=== PATIENT | female | born 1990 | race Caucasian/White ===

== ENCOUNTER 2017-11-10 23:49 | Emergency (ER) | payer SELFPAY ==
[2017-11-10 23:49] VITALS: BP 138/108; PULSE 125; RESP 18; TEMP 36.9; O2SAT 99; BMI 24.2
--- NOTE | 2017-11-11 00:17 | RAD_ITS ---
STUDY: X-RAY - RIGHT FOOT CLINICAL: Female, 27 years old. Rolled right ankle complaining of pain anterior and lateral aspect of right ankle. No pain in foot. TECHNIQUE: 3 view(s) of the foot. COMPARISON: None. FINDINGS: Normal talus, calcaneus, and tarsal bones. There is an oblique deformity of the distal fibula likely a nondisplaced fracture. There is anterior ankle soft tissue swelling. Normal visualized subtalar, talonavicular, calcaneocuboid, tarsal and tarsometatarsal articulations. Normal metatarsi. Normal metatarsophalangeal joint of the great toe. Normal tibial and fibular sesamoid bones. Normal interphalangeal joint of the great toe. Normal phalanges of the great toe. Normal second through fifth metatarsophalangeal joints. Normal interphalangeal joints and phalanges of the lesser toes. RAD/Foot min 3 Views IMPRESSION: Acute fracture of the distal fibula with anterior ankle soft tissue swelling. Targeted ankle views recommended. Electronically Signed: Madeleine Chávez MD at 1:09 EDT , Service support ,
--- NOTE | 2017-11-11 00:17 | RAD_ITS ---
STUDY: X-RAY - RIGHT ANKLE REASON FOR EXAM: Female, 27 years old. Trauma. Patient rolled the right ankle. Pain. TECHNIQUE: 3 view(s) of the ankle. COMPARISON: None. FINDINGS: There is an acute traumatic Ramirez type B fracture of the distal fibula. There is approximately 3 mm posterior displacement and 1.5 mm lateral displacement, but no significant angulation. Normal visualized distal tibia.. Normal medial and lateral malleoli. There is minimal widening of the distal tibial-fibular interspace, suggesting sprain of the distal interosseous ligament. There is minimal widening of the ankle mortise, due to the fracture and sprain, but without demonstrated subluxation of the tibiotalar articulation. Normal visualized talus and calcaneus. The visualized subtalar, talonavicular, calcaneocuboid and tarsal articulations are normal. There is soft tissue swelling. RAD/Ankle min 3 Views IMPRESSION: Minimally displaced Ramirez type B fracture of the distal fibula. Also suspect a sprain of the interosseous ligament.. Electronically Signed: Simone Quinones MD at 1:39 EDT , Service support ,
--- NOTE | 2017-11-11 00:20 | ED.DCSUM_ITS ---
- ER Visit Summary Date of Service: 11/11/17 Chief Complaint: Right ankle injury History of Present Illness: The patient is a 27 F who presents for right ankle injury 1 hour prior to presentation. Patient states she was getting out of a car and a friend was horsing around with her, picked her up, and then they fell , with the friend landing on her ankle. She denies any other trauma. She has pain and swelling of the ankle now and has been unable to bear weight. She denies any other complaints. Denies medical history. Denies . Physical Examination: Well-developed sitting in bed in no distress. Ice pack on the right ankle. 2+ DP pulses and symmetric. Strength and sensation are intact all dermatomes in the bilateral feet. Right ankle shows swelling and tenderness to the distal fibula. No tenderness to the medial malleolus, navicular head. Tenderness to palp of base of 5th metatarsal. Test Results: Clinical Impression(s) from Imaging Studies Ankle X-Ray 11/11/17 00:17 IMPRESSION: Minimally displaced Ramirez type B fracture of the distal fibula. Also suspect a sprain of the interosseous ligament.. Foot X-Ray 11/11/17 00:17 IMPRESSION: Acute fracture of the distal fibula with anterior ankle soft tissue swelling. Targeted ankle views recommended. Emergency Department Course and Treatment: Ice Pack and Tylenol given for pain. X-ray of the right ankle and foot performed. There were no findings concerning for foot fracture, but patient did have a distal fibular Ramirez B fracture with concerning for sprain of the interosseous ligament. Patient was offered pain medication prior to splinting and declined. A stirrup splint and posterior splint were applied using plaster to the right lower extremity. Prior to splinting, patient had good cap refill, 2+ DP pulse, and sensation and motor function intact. After splinting, patient had brisk cap refill in the toes, sensation present in all toes, and patient able to wiggle all toes. She was made nonweightbearing and placed on crutches. She is to follow-up within 1 week with orthopedics. Patient was given care instructions and a prescription for Mcdonald for severe pain. Patient was discharged home. 06:40 - Spoke with Dr. John re: referral of patient to her for follow up of her fracture. Treatment Plan: [] Disposition: [] Impression: Right Ramirez B distal fibula fracture with sprain of interosseous ligament This note was generated with [employer] dictation software. It may contain incorrect words, spelling, and punctuation that were not noted in review of the chart prior to signing ED Disposition - Plan for ED Patient: Disposition: Home or Assisted Living Chief Complaint: Lower Extremity Injury Instructions: ED Fx Ankle Lateral Malleolus Prescriptions: Hydrocodone/Acetaminophen [Mcdonald 5-325 Tablet] 1 ea PO 4X/DAY PRN PRN 3 Days # 12 tab PRN Reason: Pain Referrals: Chrissy John DO [STAFF PHYSICIAN] - 5-7 Days Care Physician,No Primary [Primary Care Provider] - Additional Instructions: DO NOT PUT ANY WEIGHT ON YOUR RIGHT FOOT/LEG. Leave the splint in place until you follow-up with orthopedics. Call as soon as possible to make an appointment for within 1 week with the orthopedic doctor on this paperwork or with the orthopedic doctor of your choice. You may use [id number] pain medication as needed for pain and Mcdonald for severe pain. Keep the leg elevated much as possible and apply ice several times a day the ankle. If you have any concerns, please return to the emergency department immediately for another evaluation.
[2017-11-11] MEDS: Acetaminophen 500 MG Tablet 1000 MG PO (00:24)
[2017-11-11 00:53] LABS: Internal QC Validated? YES +Cl - CLEAR BKGD; Pregnancy, Urine Negative Negative
--- NOTE | 2017-11-11 02:25 | ED.DEP ---
ED Disposition - Plan for ED Patient: Disposition: Home or Assisted Living Chief Complaint: Lower Extremity Injury Instructions: ED Fx Ankle Lateral Malleolus Prescriptions: Hydrocodone/Acetaminophen [[place] 5-325 Tablet] 1 ea PO 4X/DAY PRN PRN 3 Days #12 tab PRN Reason: Pain Referrals: Care Physician,No Primary [Primary Care Provider] - Chrissy John DO [STAFF PHYSICIAN] - 5-7 Days Additional Instructions: DO NOT PUT ANY WEIGHT ON YOUR RIGHT FOOT/LEG. Leave the splint in place until you follow-up with orthopedics. Call as soon as possible to make an appointment for within 1 week with the orthopedic doctor on this paperwork or with the orthopedic doctor of your choice. You may use [id number] pain medication as needed for pain and [place] for severe pain. Keep the leg elevated much as possible and apply ice several times a day the ankle. If you have any concerns, please return to the emergency department immediately for another evaluation.
--- NOTE | 2017-11-11 02:30 | DCINST.ED_ITS ---
ED Disposition - Plan for ED Patient: Disposition: Home or Assisted Living Chief Complaint: Lower Extremity Injury Instructions: ED Fx Ankle Lateral Malleolus Prescriptions: Hydrocodone/Acetaminophen [[place] 5-325 Tablet] 1 ea PO 4X/DAY PRN PRN 3 Days # 12 tab PRN Reason: Pain Referrals: Care Physician,No Primary [Primary Care Provider] - Chrissy John DO [STAFF PHYSICIAN] - 5-7 Days Additional Instructions: DO NOT PUT ANY WEIGHT ON YOUR RIGHT FOOT/LEG. Leave the splint in place until you follow-up with orthopedics. Call as soon as possible to make an appointment for within 1 week with the orthopedic doctor on this paperwork or with the orthopedic doctor of your choice. You may use [id number] pain medication as needed for pain and [place] for severe pain. Keep the leg elevated much as possible and apply ice several times a day the ankle. If you have any concerns, please return to the emergency department immediately for another evaluation.
[2017-11-11] MEDS: HYDROcodone Bitartrate/Apap 5/325 Tablet PO ×2 (02:45→02:46)
[2017-11-11 02:54] VITALS: BP 142/107; PULSE 104; RESP 18; O2SAT 100
== END 2017-11-11 02:56 | disposition home or self-care (01) ==
PROVIDERS: Emergency Provider Emergency Medicine
DX: S82.831A Other fracture of upper and lower end of right fibula, initial encounter for closed fracture (principal); S93.491A Sprain of other ligament of right ankle, initial encounter; W03.XXXA Other fall on same level due to collision with another person, initial encounter; Y93.9 Activity, unspecified; Y92.89 Other specified places as the place of occurrence of the external cause; Y99.9 Unspecified external cause status; Z72.0 Tobacco use
CPT/HCPCS: 29515; 73610; 73630; 81025; 99284

== ENCOUNTER 2017-11-25 08:28 | Day surgery (SDC) | payer MEDICAID, SELFPAY ==
[2017-11-25 08:45] VITALS: BP 140/93; PULSE 82; RESP 18; TEMP 36.9; O2SAT 99; BMI 26.1
[2017-11-25 08:51] LABS: Internal QC Validated? YES +Cl - CLEAR BKGD; Pregnancy, Urine Negative Negative
--- NOTE | 2017-11-25 10:00 | RAD_ITS ---
STUDY: X-RAY - RIGHT ANKLE REASON FOR EXAM: ORIF right ankle. TECHNIQUE: 2 fluoroscopic view(s) of the ankle. COMPARISON: Radiographs 11/11/2017. FINDINGS: There is an orthopedic plate and screws transfixing a distal fibular fracture in anatomical alignment and position. Electronically Signed: Damon Nunn MD at 11:58 EDT Tel , Service support , RAD/Ankle min 3 Views
[2017-11-25] MEDS: Cefazolin 2 GM in 0.9% Normal Saline 100 ML IV (10:05)
[2017-11-25] MEDS: Mupirocin Ointment 22gm Tube 1 APPLIC (11:00)
--- NOTE | 2017-11-25 11:06 | PCM.OPRPT ---
Report of Operation Date of Procedure: 11/25/17 Pre-Operative Diagnosis: right distal lateral malleolus fracture Post-Operative Diagnosis: same Surgery/Procedure Performed:: orif right distal lateral malleolus Type of Anesthesia:: Spinal Anesthesiologist: Santos Cedeño Estimated Blood Loss (mL): minimal Fluids Replaced: 1000ml lr Description of Procedure: Of note Patient is a 27-year-old female who was roughhousing and broke her right ankle. Was seen in the emergency room x-rayed show distal lateral malleolus fracture and increased medial joint space widening. Patient was given options of casting versus ORIF patient elected proceed with casting and she does not want to have a cast on and not be nonweightbearing for at least 6 weeks. Risks benefits and alternatives surgery discussed with patient. Risks including but not limited to blood loss,, blood clot, infection infection, neurovascular injury, failure procedure, loss of life and loss of limb. Patient is aware would like proceed with ORIF right lateral malleolus. Operative note Patient seen and examined preoperative holding area. Right leg was marked. Patient brought to the operating room placed supine on the operating table. Signing, anesthesia, antibiotics were administered. Right leg was prepped and draped prepped and draped in usual sterile fashion with tourniquet around her upper thigh. All bony prominences well-padded SCDs placed on her contralateral limb. We then marked out our incision for our distal lateral malleolus. We used fluoroscopy. Timeout was performed. Then elevated extremity the leg and tourniquet was raised her pressure to 50 torr. We then used a 15 blade to cut the skin dissected down times the level of the fracture site then used a baby Conroy to irrigate the periosteum around the fracture site we then debrided the fracture site with a bone pick. We then were able to reduce the fracture site with lobster claw. We decided to do a posterior antiglide technique. We chose a 5 hole one third tubular [employer] plate prevented him placed on the posterior aspect of the distal fibula. We placed her first screw just proximal to the fracture. We had good reduction of the fractures at this point. We placed another screw just proximal to this in a another 3.5 which is drilled with a 2 5 and measured accordingly. We placed 1 screw distal cross into the distal fibula. This last screw was a cancellus screw measuring 18 mm. We like to reduction however does to gain more strength as the patient can be weightbearing sooner we placed 3 5 screw in typical standard lag technique across the fracture site from anterior to posterior. Again we had good compression of the fracture site good reduction of the mortise. We irrigated the incision with copious amounts sterile saline. We then performed an external stress test to ascertain the level of the whether or not the syndesmosis was involved which it was not. We then irrigated the incision with copious amounts of saline sterile saline we closed the incision with periosteum over the plate with 2-0 Vicryl the skin with 3-0 Vicryl and skin subcutaneously and the skin with 3-0 nylon sterile dressings and a posterior splint was applied. Patient transferred to recovery room in stable condition. There are no comp occasions patient chance patient tolerated procedure well. Postoperative note next Nonweightbearing right leg Hospital has prescription next Follow-up in 2 weeks Discussed with family preoperatively I had like the patient to be on aspirin 325 twice daily Call with increased pain numbness tingling further issues arise This note was generated with [employer] dictation software. It may contain incorrect words, spelling, and punctuation that were not noted in checking the note before signing.
--- NOTE | 2017-11-25 11:06 | DCINST_ITS ---
Discharge Diet: No Restrictions - non weight bearing right leg, leave splint on - clean and dry and intact Discharge Activity: May Not Drive May shower in (days): 1 Ice area for (Minutes): 20 - Every hour while awake. Weight Bearing Status: Weight bearing as tolerated Keep extremity elevated above heart level: Operative Extremity Call your doctor if your incision/area has: Continuous Slow Oozing, Sudden Increased Bleeding, Increased Pain/ Swelling, Increased Redness, Foul Smelling Discharge Call your doctor if you observe: Fever of 101 or Higher, Coldness, Increased Pain, Numbness or Tingling, Change in Color, Calf discomfort Allergies/Adverse Reactions: Allergies No Known Allergies Allergy (Verified 11/24/17 08:27) Medications to take at Discharge Hydrocodone/Acetaminophen [[place] 5-325 Tablet] 1 ea PO 4X/DAY PRN PRN 3 Days # 12 tab 11/11/17 Oxycodone HCl/Acetaminophen [Percocet 5/325] 1 - 2 tablet PO Q6H PRN PRN 5 Days #56 tablet 11/25/17 The following prescriptions were given: Oxycodone HCl/Acetaminophen [Percocet 5/325] 1 - 2 tablet PO Q6H PRN PRN 5 Days #56 tablet PRN Reason: Pain Primary Care Physician: Care Physician,No Primary [Primary Care Provider] - Please Follow Up With: Chrissy John, - [phone]
[2017-11-25 11:26] VITALS: BP 140/93; BP 95/62; PULSE 73; RESP 16; TEMP 36.3; O2SAT 100
[2017-11-25 11:30] VITALS: BP 103/71; BP 140/93; PULSE 65; RESP 16; O2SAT 100
[2017-11-25 11:45] VITALS: BP 109/72; BP 140/93; PULSE 62; RESP 16; O2SAT 100
[2017-11-25 12:00] VITALS: BP 115/76; BP 140/93; PULSE 70; RESP 16; TEMP 36.5; O2SAT 100
[2017-11-25] MEDS: HYDROcodone Bitartrate/Apap 5/325 Tablet PO ×2 (12:30→15:44)
[2017-11-25 15:45] VITALS: BP 124/71; BP 140/93; PULSE 75; RESP 16; TEMP 36.2; O2SAT 98
== END 2017-11-25 16:15 | disposition home or self-care (01) ==
LOC: SDC 08:30 → AC 08:30
PROVIDERS: Visit Provider Orthopaedic Surgery
PROC: (CPT 27792; principal; 2017-11-25 09:40)
DX: S82.831A Other fracture of upper and lower end of right fibula, initial encounter for closed fracture (principal); W03.XXXA Other fall on same level due to collision with another person, initial encounter; Y93.9 Activity, unspecified; Y92.89 Other specified places as the place of occurrence of the external cause; Y99.9 Unspecified external cause status; F17.210 Nicotine dependence, cigarettes, uncomplicated
CPT/HCPCS: 01480; 27792; 73610; 76000; 81025; C1713; J7120; J2405

== ENCOUNTER → 2017-12-08 10:44 | Outpatient (CLI) | payer MEDICAID, SELFPAY ==
--- NOTE | 2017-12-08 10:53 | RAD_ITS ---
STUDY: X-RAY - RIGHT ANKLE REASON FOR EXAM: Pain. TECHNIQUE: 3 view(s) of the ankle. COMPARISON: Intraoperative images 11/25/2017. FINDINGS: There is an orthopedic plate and screws transfixing a distal fibular fracture in anatomical alignment and position. Normal tibiotalar articulation and ankle mortise. Normal visualized talus and calcaneus. The visualized subtalar, talonavicular, calcaneocuboid and tarsal articulations are normal. There is soft tissue swelling overlying the distal fibula. RAD/Ankle min 3 Views IMPRESSION: ORIF of distal fibular fracture in anatomical alignment and position. Electronically Signed: Damon Nunn MD at 11:41 EDT Tel , Service support ,
== END ==
PROVIDERS: Visit Provider Orthopaedic Surgery
DX: M25.571 Pain in right ankle and joints of right foot (principal)
CPT/HCPCS: 73610